=== PATIENT | male | born 1970 | race Caucasian/White ===

== ENCOUNTER 2021-11-25 16:30 | Outpatient (CLI) | payer OTHER, MEDICAID, SELFPAY | END 2021-11-25 23:59 | disposition short-term general hospital (02) | LOC: LABSPEC 16:32 | PROVIDERS: PCP Family Medicine; Referring Provider Physician Assistant; Visit Provider Physician Assistant | DX: U07.1 COVID-19 (principal) | CPT/HCPCS: 87635; U0003; U0005 ==